=== PATIENT | female | born 1990 | race Caucasian/White ===

== ENCOUNTER 2020-05-13 17:00 | Inpatient (IN) | payer OTHER ==
[2020-05-13] MEDS: ELECTROLYTE-148 SOLN 1,000 ML IV SCH ×2 (17:15→23:00)
[2020-05-13 18:13] VITALS: BMI 32.9
[2020-05-13] MEDS ORDERED: PROMETHAZINE HCL 25 MG/1 ML VIAL ONE (18:37)
[2020-05-13] MEDS ORDERED: BUTORPHANOL TARTRATE 2 MG/ML VIAL ONE (18:37)
[2020-05-13] MEDS ORDERED: PROMETHAZINE HCL 25 MG/1 ML VIAL IVPUSH ONE (19:00)
[2020-05-13] MEDS ORDERED: BUTORPHANOL TARTRATE 2 MG/ML VIAL IVPB ONE (19:00)
[2020-05-13 22:11] LABS: BASO % 0.2 % (0-2.0); HEMATOCRIT 38.5 % (32.4-45.2); HEMOGLOBIN 12.6 GM/dL (10.7-15.3); LYMPH % 11.4 % (8-40); MCH 28.1 pg (25.7-33.7); MCHC 32.8 g/dl (32.0-36.0); MEAN CELL VOLUME 85.6 fl (80-96); MEAN PLT VOLUME 8.6 fl (7.5-11.1); MONO % 2.5 % (3.8-10.2); NEUT % 85.9 % (42.8-82.8); PLATELET COUNT 232 K/MM3 (134-434); RBC 4.49 M/mm3 (3.60-5.2); RDW 15.5 % (11.6-15.6); WHITE BLOOD COUNT 14.4 K/mm3 (4.0-10.0)
[2020-05-13 22:14] LABS: POTASSIUM 3.8 mmol/L (3.5-5.1)
[2020-05-13 22:15] LABS: CALCIUM 9.1 mg/dL (8.5-10.1)
[2020-05-13 22:16] LABS: BLOOD UREA NITROGEN 7.4 mg/dL (7-18)
[2020-05-13 22:18] LABS: INR 0.94 (0.83-1.09); PROTHROMBIN TIME (PATIENT) 11.6 SEC (9.7-13.0)
[2020-05-13 22:19] LABS: CREATININE 0.9 mg/dL (0.55-1.3)
[2020-05-13 22:21] LABS: ACTIVATED PTT 25.4 SECONDS (25.2-36.5)
[2020-05-14] MEDS ORDERED: BUTORPHANOL TARTRATE 2 MG/ML VIAL ONE (01:39)
[2020-05-14] MEDS ORDERED: PROMETHAZINE HCL 25 MG/1 ML VIAL ONE (01:40)
[2020-05-14] MEDS ORDERED: PROMETHAZINE HCL 25 MG/1 ML VIAL IVPUSH ONE (01:45)
[2020-05-14] MEDS ORDERED: BUTORPHANOL TARTRATE 1 MG/ML VIAL IVPUSH ONE (01:45)
[2020-05-14] MEDS ORDERED: AMPICILLIN - 2 GM in SODIUM CHLORIDE 100 ML IVPB ONE (07:00)
[2020-05-14] MEDS ORDERED: PCA PUMP NR ONE (07:12)
[2020-05-14] MEDS ORDERED: AMPICILLIN SODIUM 2 GM VIAL ONE (07:16)
[2020-05-14] MEDS ORDERED: FENTANYL/BUPIVACAINE/NS/PF - PCEA - 50 ML DISP.SYRIN EP ONE (07:23)
[2020-05-14] MEDS ORDERED: FENTANYL/BUPIVACAINE/NS/PF - PCEA - 50 ML DISP.SYRIN EP SCH (07:40)
[2020-05-14] MEDS ORDERED: NALOXONE HCL 0.4 MG/ML VIAL IVPUSH PRN (08:43)
[2020-05-14] MEDS ORDERED: CITRIC ACID/SODIUM CITRATE 30 ML UNIT-DOSE CUP PO ONE (09:09)
[2020-05-14] MEDS ORDERED: OXYTOCIN 20 UNITS in 0.9% NS 20 UNIT/1,000 ML INFUS.BAG IV ONE (09:15)
[2020-05-14] MEDS ORDERED: ELECTROLYTE-148 SOLN 1,000 ML IV SCH (09:15)
[2020-05-14] MEDS ORDERED: METHYLERGONOVINE MALEATE 0.2 MG/1 ML AMP IM PRN (09:36)
[2020-05-14] MEDS ORDERED: SENNOSIDES/DOCUSATE COMBO (SENNA PLUS) TABLET (UD) PO PRN (09:36)
[2020-05-14] MEDS ORDERED: oxyCODONE HCL 5 MG TABLET PO PRN ×2 (09:36)
[2020-05-14] MEDS ORDERED: LIDO 2%/EPI 1:200000 PRESRVFRE (20 ML SDVIAL) ONE (09:42)
[2020-05-14] MEDS ORDERED: morphine SULFATE/PF 0.5 MG/ML (2cc Syringe - QUVA) ONE ×2 (09:56)
[2020-05-14] MEDS ORDERED: AMPICILLIN - 1 GM in SODIUM CHLORIDE 100 ML IVPB SCH (11:00)
[2020-05-14] MEDS ORDERED: IBUPROFEN 800 MG/8 ML IJ IVPB ONE (12:00)
[2020-05-14] MEDS: IBUPROFEN 800 MG/8 ML IJ IVPB PRN ×2 (12:05→22:58)
[2020-05-14] MEDS: OXYTOCIN 20 UNITS in 0.9% NS 20 UNIT/1,000 ML INFUS.BAG IV SCH (12:50)
[2020-05-14] MEDS: ELECTROLYTE-148 SOLN 1,000 ML IV SCH (19:49)
[2020-05-15] MEDS: IBUPROFEN 800 MG/8 ML IJ IVPB PRN (06:42)
[2020-05-15 08:31] LABS: BASO % 0.3 % (0-2.0); EOS % 0.2 % (0-4.5); HEMATOCRIT 29.2 % (32.4-45.2); HEMOGLOBIN 9.7 GM/dL (10.7-15.3); LYMPH % 16.8 % (8-40); MCH 28.7 pg (25.7-33.7); MCHC 33.3 g/dl (32.0-36.0); MEAN CELL VOLUME 85.9 fl (80-96); MEAN PLT VOLUME 8.2 fl (7.5-11.1); MONO % 3.5 % (3.8-10.2); NEUT % 79.2 % (42.8-82.8); PLATELET COUNT 169 K/MM3 (134-434); RDW 15.2 % (11.6-15.6); WHITE BLOOD COUNT 16.1 K/mm3 (4.0-10.0)
[2020-05-15] MEDS ORDERED: BISACODYL 10 MG SUPP.RECT RC PRN (09:36)
[2020-05-15] MEDS: OXYTOCIN 20 UNITS in 0.9% NS 20 UNIT/1,000 ML INFUS.BAG IV SCH (09:45)
[2020-05-15] MEDS: SIMETHICONE 80 MG TAB.CHEW (FP) PO PRN (18:05)
[2020-05-15] MEDS: IBUPROFEN 600 MG TABLET (FP) PO PRN (18:05)
[2020-05-15] MEDS: ACETAMINOPHEN 325 MG TABLET (FP) PO PRN (18:05)
[2020-05-16] MEDS: ACETAMINOPHEN 325 MG TABLET (FP) PO PRN (03:04)
[2020-05-16] MEDS: IBUPROFEN 600 MG TABLET (FP) PO PRN (03:04)
[2020-05-16] MEDS: SIMETHICONE 80 MG TAB.CHEW (FP) PO PRN (03:05)
[2020-05-16 09:13] VITALS: BP 116/69; PULSE 96; TEMP 98.6
== END 2020-05-16 12:45 | disposition home or self-care (01) | DRG 540 ==
LOC: JLDR 17:00 → J3W 05-14 13:02
PROVIDERS: ADMIT Obstetrics & Gynecology; ATTEND Obstetrics & Gynecology
PROC: 10D00Z1 Extraction of Products of Conception, Low, Open Approach (ICD-10-PCS; principal; 2020-05-14)
DX: O32.4XX0 Maternal care for high head at term, not applicable or unspecified (principal); O76 Abnormality in fetal heart rate and rhythm complicating labor and delivery; O42.02 Full-term premature rupture of membranes, onset of labor within 24 hours of rupture; O69.2XX0 Labor and delivery complicated by other cord entanglement, with compression, not applicable or unspecified; Z3A.39 39 weeks gestation of pregnancy; Z37.0 Single live birth
CPT/HCPCS: 36415; 80048; 85025; 85610; 85730; 86780; 86850; 86900; 86901; 87389; 88307-TC; C9803; U0003